=== PATIENT | male | born 1960 | race Caucasian/White ===

== ENCOUNTER 2024-08-11 04:34 | Observation (INO) | payer OTHER, SELFPAY ==
[2024-08-11] VITALS (11 sets, daily range): BP systolic 143–172; BP diastolic 58–85; PULSE 52–84; RESP 15–19; TEMP 35.5–37.1; O2SAT 95–100; BMI 34.4
--- NOTE | ~2024-08-11 | XR_ITS ---
Supine and upright views of the abdomen Clinical history: Foreign body Findings: Bowel gas pattern is nonspecific. No evidence for obstruction or free air. No abnormal mass lesion or calcification is seen. Osseous structures are intact. Impression: No significant abnormality is seen. No radiopaque foreign body seen. Reviewed, dictated and finalized at [facility]. Impression: No significant abnormality is seen. No radiopaque foreign body seen.
--- NOTE | ~2024-08-11 | CT_ITS ---
CT of the Abdomen and Pelvis: Indication: Necrotic bowel Technique: 2.5 mm axial scans were obtained through the abdomen and pelvis following intravenous adm inistration of 100 cc of Omnipaque 350. Dose reduction technique was used on this scan by utilizing a utomated exposure control and iterative reconstruction technique. The dose-length product (DLP) was 1 417.36 mGy-cm. Findings: Scans through the lung bases demonstrate calcified left upper lobe granuloma. The liver, spleen, pancreas, gallbladder, adrenals and kidneys are within normal limits. There are at herosclerotic calcifications of the aorta. No lymphadenopathy. There is probable circumferential wall thickening of the distal rectum with mild adjacent inflammator y change. No perforation evident. No obstruction evident. No abscess evident. Images through the pelvis were performed. Urinary bladder unremarkable. No pelvic mass seen. No ascit es. Bilateral L5 pars interarticularis defects are noted. Impression: Circumferential wall thickening of the distal rectum with mild adjacent inflammatory stranding. Findi ngs suggest infectious/inflammatory colitis. No evidence of perforation, abscess, or obstruction. Reviewed, dictated and finalized at [facility]. Impression: Circumferential wall thickening of the distal rectum with mild adjacent inflamm atory stranding. Findings suggest infectious/inflammatory colitis. No evidence of perforation, abscess, or obstruction.
--- NOTE | 2024-08-11 04:58 | ED_ITS ---
HPI - Skin/Abscess/Foreign Bdy General Chief complaint: Skin/Abscess/Foreign Body Stated complaint: I think I have blood coming out of my anus Time Seen by Provider: 08/11/24 04:46 History of Present Illness HPI narrative: Patient put a plastic water bottle of his bottom yesterday morning, has not been able to get it out. Has noticed some pinkish discharge and now there is blood so he finally came in. Review of Systems 2 Review of Systems: All systems reviewed & are unremarkable except as noted in HPI and below Exam 2 Narrative: EXAMINATION OF ORGAN SYSTEMS/BODY AREAS: Constitutional: Vital signs per nursing GENERAL:[No acute distress, non-toxic appearing.] HEAD: Normal with no signs of head trauma. EYES: EOMI, conjunctiva normal ENT: Hearing grossly intact LUNGS: Nonlabored breathing. HEART: [Regular rate and rhythm] ABD: [Soft], [nontender to palpation] RECTAL: Bloody mucus; I cannot palpate anything to extend of my finger EXT: Normal range of motion SKIN: [No rashes or lesions.] NEURO: [Alert and oriented x 3. No gross focal sensory or strength deficits.] PSYCH: Normal affect Course Vital Signs Vital signs: Vital Signs Temperature 98.5 F 08/11/24 05:56 Pulse Rate 53 L 08/11/24 05:56 Respiratory Rate 16 08/11/24 05:56 Blood Pressure 159/84 H 08/11/24 05:56 Pulse Oximetry 95 08/11/24 05:56 Temperature 98.5 F 08/11/24 05:56 Pulse Rate 53 L 08/11/24 05:56 Respiratory Rate 16 08/11/24 05:56 Blood Pressure 159/84 H 08/11/24 05:56 Pulse Oximetry 95 08/11/24 05:56 MDM - Skin/Abscess/Foreign Bdy MDM Narrative Medical decision making narrative: Patient presents with shampoo bottle of his rectum, he has not been able to retrieve it, he has use shampoo bottle in the past but has never had it get stuck before. Has been 24 hours and he is now having bloody stool in discharge. Severe pain with bearing down. Labs within acceptable limits, discussed with general surgeon will admit patient. Discussed with patient was agreeable to this plan. Lab Data 08/11/24 05:31 08/11/24 05:31 Labs: Lab Results 08/11/24 Range/Units 05:31 WBC 6.2 (4.5-10.0) K/mm3 RBC 4.76 (4.6-6.20) M/mm3 Hgb 14.6 (14.0-18.0) g/dL Hct 43.9 (42.0-52.0) % MCV 92.2 (80-100) fl MCH 30.7 (26-34) pg MCHC 33.3 (32-36) g/dl RDW 12.6 (11.5-14.5) % Plt Count 181 (150-375) k/mm3 MPV 9.9 (7.4-10.4) fl Immature Gran % (Auto) 0.2 (0-0.5) % Neut % (Auto) 66.8 (45.5-73.1) % Lymph % (Auto) 23.6 (18.3-44.2) % [place] % (Auto) 7.1 (2.6-8.5) % Eos % (Auto) 2.1 (0-4.4) % Baso % (Auto) 0.2 (0.2-1.2) % Lymph # (Auto) 1.46 (0.9-3.2) K/mm3 [place] # (Auto) 0.4 (0.1-0.6) K/mm3 Eos # (Auto) 0.1 (0-0.3) K/mm3 Baso # (Auto) 0.0 (0.0-0.1) K/mm3 Abs Immat Gran (auto) 0.01 (0.00-0.031) K/mm3 Absolute Neuts (auto) 4.1 (1.3-6.7) K/mm3 Absolute Nucleated RBC 0.000 (0.0-0.012) K/mm3 Nucleated RBC % 0.0 (0.0-0.2) % Sodium 141 (137-145) mmol/L Potassium 4.0 (3.4-5.0) mmol/L Chloride 108 H (98-107) mmol/L Carbon Dioxide 25 (22-30) mmol/L Anion Gap 8 (4-12) mmol/L BUN 21 H (9-20) mg/dL Creatinine 0.86 (0.7-1.3) mg/dL Estim Creat Clear Calc 95 ml/min Estimated GFR > 60 (59 - ) Glucose 105 (65-110) mg/dL Lactic Acid 0.9 (0.7-2.0) mmol/L Calcium 9.0 (8.4-10.2) mg/dL Total Bilirubin 0.8 (0.2-1.3) mg/dL AST 48 (17-59) U/L ALT 42 (6-50) U/L Alkaline Phosphatase 72 (38-126) U/L Total Protein 7.0 (6.3-8.2) g/dL Albumin 4.5 (3.5-5.1) g/dL Discharge Plan Discharge Clinical Impression: FB anus/rectum Patient Disposition: Still a Patient Condition: Serious Patient Language: Australian Follow-up/Referrals: PHYSICIAN,TRACK EQUIPMENT OPERATOR [Primary Care Provider] -
[2024-08-11 05:38] LABS: Basophils Percent Auto 0.2 % (0.2-1.2); Eosinophils Absolute Auto 0.1 K/mm3 (0-0.3); Eosinophils Percent Auto 2.1 % (0-4.4); Hematocrit 43.9 % (42.0-52.0); Hemoglobin 14.6 g/dL (14.0-18.0); Immature Granulocyte Absolute 0.01 K/mm3 (0.00-0.031); Immature Granulocyte Percent A 0.2 % (0-0.5); Lymphocytes Absolute Auto 1.46 K/mm3 (0.9-3.2); Lymphocytes Percent Auto 23.6 % (18.3-44.2); Mean Corpuscular HGB Conc 33.3 g/dl (32-36); Mean Corpuscular Hemoglobin 30.7 pg (26-34); Mean Corpuscular Volume 92.2 fl (80-100); Mean Platelet Volume 9.9 fl (7.4-10.4); Monocytes Absolute Auto 0.4 K/mm3 (0.1-0.6); Monocytes Percent Auto 7.1 % (2.6-8.5); Neutrophils Absolute Auto 4.1 K/mm3 (1.3-6.7); Neutrophils Percent Auto 66.8 % (45.5-73.1); Platelet Count Result 181 k/mm3 (150-375); Red Blood Count 4.76 M/mm3 (4.6-6.20); Red Cell Distribution Width 12.6 % (11.5-14.5); White Blood Count 6.2 K/mm3 (4.5-10.0)
[2024-08-11 05:48] LABS: Alanine Aminotransferase 42 U/L (6-50); Albumin Level 4.5 g/dL (3.5-5.1); Alkaline Phosphatase 72 U/L (38-126); Anion Gap 8 mmol/L (4-12); Aspartate Amino Transferase 48 U/L (17-59); Bilirubin,Total 0.8 mg/dL (0.2-1.3); Blood Urea Nitrogen 21 mg/dL (9-20); Carbon Dioxide 25 mmol/L (22-30); Chloride 108 mmol/L (98-107); Estimated CRCL calculation 95 ml/min; Estimated Glomerular Filt Rate > 60; Glucose 105 mg/dL (65-110); Lactic Acid Reflex 0.9 mmol/L (0.7-2.0); Sodium 141 mmol/L (137-145)
--- NOTE | 2024-08-11 08:56 | PM.IMHP ---
H&P: HPI History of Present Illness Date/Time: 08/11/24 08:56 Chief Complaint: Rectal foreign body Narrative: This is a 64-year-old male with history of KIKA compliant with CPAP, who presented to the ED early this morning for evaluation of rectal foreign body. He placed a plastic water bottle through his rectum yesterday morning and was not able to get it back out. He has been passing flatus and had some liquid stool since the object was inserted. He reports mild cramping abdominal pain when he feels like he needs to have a bowel movement, which is intermittent subsides. He noticed some rectal blood and decided come to the ED for evaluation. Labs were remarkable. CT scan of the abdomen and pelvis showed circumferential wall thickening of the distal rectum with mild adjacent inflammatory stranding, no perforation or signs of obstruction, and an air-filled foreign body in the distal sigmoid colon/rectum measuring 5.6 cm in length. The patient was for surgical evaluation and is now seen on medical floor. He denies any current abdominal pain. No nausea or vomiting. 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 Gender identity (if verbalized by the patient): Male Meds Vital Signs Vital Signs - 24 hr 08/11/24 05:56 08/11/24 06:50 08/11/24 07:25 Temperature 98.5 F Pulse Rate 53 L 53 L 52 L Respiratory Rate 16 17 15 Blood Pressure 159/84 H 149/67 H 143/70 H Pulse Oximetry 95 98 97 Exam Const: General: comfortable and no acute distress Nutritional Appearance: average body habitus Orientation/consciousness: patient oriented x3 HENMT: Head: normocephalic and atraumatic Ears: hearing grossly normal bilaterally Mouth: Yes moist mucous membranes Eyes: General: appearance normal, both eyes and all related structures Pupils: Equal, round and reactive pupils present Neck: Neck: normal visual inspection and full ROM Resp: Effort & Inspection: no respiratory distress Auscultation: clear to auscultation bilaterally Cardio: Rate: regular rate Rhythm: regular rhythm Peripheral pulses: Peripheral pulses 2+ throughout GI: Inspection: obesity and other (mildly distended) GI Palp: Yes Soft to palpation, Yes Tenderness to palpation present (GI) (mild lower abdominal tenderness) and Yes Other GI palpation findings present (Firmness in the mid lower abdomen, c/w foreign object seen on CT) Auscultation: Hypoactive bowel sounds present Rectal Exam: deferred Skin: General skin exam: normal color Neuro: General: moves all extremities and no focal motor deficits Speech: normal speech Motor exam (neuro): 5/5 motor strength present throughout Extrem: General: normal to inspection and no edema Psych: Mental Status: mental status grossly normal Attitude: cooperative Insight: Good insight present (Psych) Judgement: Good judgement present (Psych) H&P: Results Labs Labs: Short CBC 08/11/24 Range/Units 05:31 WBC 6.2 (4.5-10.0) K/mm3 Hgb 14.6 (14.0-18.0) g/dL Hct 43.9 (42.0-52.0) % Plt Count 181 (150-375) k/mm3 BMP 08/11/24 05:31 Sodium 141 Potassium 4.0 Chloride 108 H Carbon Dioxide 25 BUN 21 H Creatinine 0.86 Glucose 105 Calcium 9.0 Liver Function 08/11/24 Range/Units 05:31 Total Bilirubin 0.8 (0.2-1.3) mg/dL AST 48 (17-59) U/L ALT 42 (6-50) U/L Alkaline Phosphatase 72 (38-126) U/L Albumin 4.5 (3.5-5.1) g/dL Imaging CT scan - abdomen: Radiologist's impression: ITS Impressions Abdomen X-Ray 08/11/24 05:48 Impression: No significant abnormality is seen. No radiopaque foreign body seen. Abdomen/Pelvis CT 08/11/24 06:31 Impression: Circumferential wall thickening of the distal rectum with mild adjacent inflammatory stranding. Findings suggest infectious/inflammatory colitis. No evidence of perforation, abscess, or obstruction. ADDENDUM: 08/11/24 0655 Additional review of images demonstrates that there is in fact an air-filled foreign body in the rectum/distal sigmoid colon, measuring 15.6 cm in length, best seen on sagittal images (sagittal image 88). This is compatible with provided history of bottle in the rectum. Assessment and Plan Assessment and plan (1) FB anus/rectum: Code(s): T18.5XXA - Foreign body in anus and rectum, initial encounter Status: Acute Assessment and Plan: CT scan showed findings of rectal foreign body consistent with the history provided of a plastic bottle placed per rectum yesterday morning. There is some rectal wall thickening with mild inflammatory stranding, but no evidence of perforation or proximal dilated bowel suggesting an obstruction on CT. We would recommend proceeding with rectal exam under anesthesia, removal of rectal foreign body, by Dr. Mayberry. We discussed the possibility of having to proceed with an exploratory laparotomy if the foreign body cannot be retrieved through the rectum, as well as possibly requiring an ostomy. Description of the procedure, risks, benefits, alternatives, and expected recovery were discussed with the patient in detail. He agrees to proceed and has been added to the surgery schedule for later today. (2) KIKA (obstructive sleep apnea): Code(s): G47.33 - Obstructive sleep apnea (adult) (pediatric) Status: Acute Plan I have discussed the patient's case and plan of care with Dr. Mayberry.
[2024-08-11] MEDS: LACTATED RINGERS 1,000 ML 125 ML IV CONT (10:35)
[2024-08-11] MEDS: LACTATED RINGERS 1,000 ML 30 ML IV CONT (13:25)
--- NOTE | 2024-08-11 15:17 | WPDHPUPDATE1 ---
History and Physical Update Update Date/Time: 08/11/24 15:17 History and Physical has been reviewed, including an updated exam of the patient. There are NO changes in the patient's condition. Risks, benefits, and alternatives have been discussed and questions answered. Patient agrees to proceed with procedure.
--- NOTE | 2024-08-11 15:21 | WPDANESEPPF ---
Anes - Initial Pre Proc Eval Procedure: Operation Date: 08/11/24 15:00 Proposed Procedures p Rectal Exam Under Anesthesia, Removal of Rectal Foreign Body, - Washington Mayberry DO s Possible Exploratory Laparotomy, Possible Ostomy - Washington Mayberry DO Date/Time: 08/11/24 15:21 Surgeon: Washington Mayberry DO Pre Op Diagnosis: rectal shampoo bottle Patient Data Age: 64 Gender: M Height: 1.78 m Weight: 109 kg Last Vital Signs Temp 37.1 C 08/11/24 13:25 Pulse 61 08/11/24 13:25 Resp 16 08/11/24 13:25 BP 172/78 H 08/11/24 13:25 Pulse Ox 97 08/11/24 13:25 O2 Del Method Room Air 08/11/24 13:25 Allergies Allergy/AdvReac Type Severity Reaction Status Date / Time No Known Allergies Allergy Verified 08/11/24 10:30 Home Medications ?Medication ?Instructions ?Recorded ?Confirmed ?Type acetaminophen 325 mg capsule 325 mg PO TID PRN pain 08/11/24 08/11/24 History aspirin 81 mg capsule 81 mg PO QPM 08/11/24 08/11/24 History atorvastatin 80 mg tablet 80 mg PO QPM 08/11/24 08/11/24 History cholecalciferol (vitamin D3) 125 125 mcg PO QPM 08/11/24 08/11/24 History mcg (5,000 unit) capsule pramipexole 0.5 mg tablet 0.5 mg PO .TID 08/11/24 08/11/24 History vitamin B complex 1 cap PO QPM 08/11/24 08/11/24 History Laboratory Tests 08/11/24 05:31 WBC 6.2 K/mm3 (4.5-10.0) RBC 4.76 M/mm3 (4.6-6.20) Hgb 14.6 g/dL (14.0-18.0) Hct 43.9 % (42.0-52.0) MCV 92.2 fl (80-100) MCH 30.7 pg (26-34) MCHC 33.3 g/dl (32-36) RDW 12.6 % (11.5-14.5) Plt Count 181 k/mm3 (150-375) MPV 9.9 fl (7.4-10.4) Immature Gran % (Auto) 0.2 % (0-0.5) Neut % (Auto) 66.8 % (45.5-73.1) Lymph % (Auto) 23.6 % (18.3-44.2) [place] % (Auto) 7.1 % (2.6-8.5) Eos % (Auto) 2.1 % (0-4.4) Baso % (Auto) 0.2 % (0.2-1.2) Lymph # (Auto) 1.46 K/mm3 (0.9-3.2) [place] # (Auto) 0.4 K/mm3 (0.1-0.6) Eos # (Auto) 0.1 K/mm3 (0-0.3) Baso # (Auto) 0.0 K/mm3 (0.0-0.1) Abs Immat Gran (auto) 0.01 K/mm3 (0.00-0.031) Absolute Neuts (auto) 4.1 K/mm3 (1.3-6.7) Absolute Nucleated RBC 0.000 K/mm3 (0.0-0.012) Nucleated RBC % 0.0 % (0.0-0.2) Sodium 141 mmol/L (137-145) Potassium 4.0 mmol/L (3.4-5.0) Chloride 108 H mmol/L (98-107) Carbon Dioxide 25 mmol/L (22-30) Anion Gap 8 mmol/L (4-12) BUN 21 H mg/dL (9-20) Creatinine 0.86 mg/dL (0.7-1.3) Estim Creat Clear Calc 95 ml/min Estimated GFR > 60 (59 - ) Glucose 105 mg/dL (65-110) Lactic Acid 0.9 mmol/L (0.7-2.0) Calcium 9.0 mg/dL (8.4-10.2) Total Bilirubin 0.8 mg/dL (0.2-1.3) AST 48 U/L (17-59) ALT 42 U/L (6-50) Alkaline Phosphatase 72 U/L (38-126) Total Protein 7.0 g/dL (6.3-8.2) Albumin 4.5 g/dL (3.5-5.1) Patient hx anesthesia problems: none Family hx anesthesia problems: none Results Review: All pre-operative results and documents have been reviewed as part of the pre-operative evaluation. FORMERLY [facility], [facility] Past Medical History Medical History KIKA (obstructive sleep apnea) Obesity Surgical History Surgical History History of appendectomy Social History Social History Smoking packs per day: 1 Smoking cigarettes per day: 20.0 Years smoked: 30 Smoking pack-years: 30.00 Smoking status: Former smoker Tobacco type: cigarettes Alcohol intake: never Substance use: never Do You Feel Safe in your Home?: Yes Lack of Transportation: No Lack of Food: Never True Current Housing: I Have Housing Concerned About Future Housing: No Difficulty Paying Gas/Electric Bills: No Difficulty Paying for Meds: No Currently Unemployed: No Education: Bachelor's Degree Difficulty w/ Childcare or Family Care: No Living arrangements: with family Additional living arrangements comments: with 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/Education: occupation 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 Informed Consent: The patient's anesthetic plan and its attendant risks and benefits were discussed with the patient/family/POA. Questions were solicited and answers provided to the satisfaction of the patient/family/POA.
--- NOTE | 2024-08-11 16:37 | W.PM.PROC2 ---
Procedure Note - Detailed Date of Procedure 08/11/24 Pre-op Diagnosis Rectal foreign body Post-op Diagnosis Same (Shampoo bottle rectal foreign body) Procedure Performed 1. Rectal exam under anesthesia with removal of rectal foreign body 2. Rigid proctosigmoidoscopy Surgeon Washington Mayberry, DO Anesthesia General Indications This is a 64-year-old man who presented to the emergency department with complaints of a rectal foreign body. He inserted a shampoo bottle yesterday and this became lodged higher up into the rectum and he was unable to retrieve it. X-ray and CT were performed in the emergency department which confirmed a rectal foreign body. Discussions were made with the patient about treatment options and decision was made to proceed with rectal exam under anesthesia with removal of foreign body, possible exploratory laparotomy, possible ostomy. Findings The rectal foreign body was identified high up into the rectal vault and sigmoid colon. While applying manual pressure on the abdomen was able to just barely feel the tip of the foreign body. This was likely about 10-12 cm from the anal verge. The foreign body was unable to be visualized using a Fansler anoscope. I then also attempted using a rigid proctoscope but was barely able to identify the tip of the foreign body. Eventually with external manipulation and gentle dilation, I was able to get 2 fingertips around the end of the foreign body. This still took some effort and manipulation but eventually I was able to get a hold of the foreign body and deliver it through the rectum and anus. Foreign body was completely removed and appeared to be intact. This appeared to be a shampoo bottle. No other significant abnormalities were noted anorectal exam other than internal and external hemorrhoids. Description of Procedure Procedure as well as risks, benefits, and alternatives were discussed with the patient. Written consent was obtained and placed in chart prior to procedure. Patient was brought back to surgical suite. He was placed supine on operating table. Time-out was done to confirm patient and procedure. He was then intubated by the anesthesia department. He was then repositioned into dorsal lithotomy position. His rectal area was prepped and draped in sterile fashion using Betadine prep. Digital rectal exam was initially performed. I then inserted a Fansler anoscope and was unable to identify the foreign object. I then applied manual pressure on the mid abdomen and was able to barely feel the tip of the object high up in the rectal vault. I gently dilated the rectum with 3 fingers and continued to try to manipulate the object distally. I also attempted to advance a Jackson catheter up the side of the object and inflate the balloon and carefully retract. This was unsuccessful delivering the object. I then also inserted a rigid proctosigmoidoscope and advanced this up to the level of the foreign object. I could just barely see the tip of the foreign object but was not able to adequately visualize it to get a clamp or other grasper around it. I then removed the proctosigmoidoscope and tried inserting the Fansler anoscope again. I was still unable to adequately visualize the object or get a clamp around this. With further external pressure on the mid abdomen I was able to manipulate the object a little further distally and was eventually able to get 3 fingers around the tip of the object. With careful pressure and continued traction was able to eventually deliver the object out of the rectum. The object appeared to be a shampoo bottle and appeared completely intact. Careful inspection was made around the remainder of the anus and rectum and no other significant abnormalities were noted other than internal and external hemorrhoids. The patient was then awakened from anesthesia, extubated, and transferred to recovery. Estimated Blood Loss 5 Pathology None sent Complications No immediate complications Condition Stable Disposition Floor [facility] Billing Surgery - Charge Forward: Surgery Billing
--- NOTE | 2024-08-11 16:48 | P.DS_ITS ---
DS: Admitting Diagnosis Discharge Date 08/11/2024 Admitting Diagnosis Rectal foreign body DS: Discharge Diagnosis Discharge Diagnosis (1) FB anus/rectum: Qualifiers: Encounter type: initial encounter Qualified Code(s): T18.5XXA - Foreign body in anus and rectum, initial encounter Code(s): T18.5XXA - Foreign body in anus and rectum, initial encounter Status: Acute (2) KIKA (obstructive sleep apnea): Code(s): G47.33 - Obstructive sleep apnea (adult) (pediatric) Status: Acute DS: Summary Hospital Course Reason for hospitalization: Rectal foreign body Hospital Course: This is a 64-year-old man who presented to the emergency department after inserting an object up his rectum and was unable to retrieve it. The object had been up in the rectum for about 24 hours. X-ray and CT was performed in the emergency department which confirmed a rectal foreign body. He was placed in observation and then underwent rectal exam under anesthesia with removal of rectal foreign body on 08/11/2024. He was then returned to the surgical floor postoperatively. His diet and activity were advanced as tolerated. He was then discharged home once pain was controlled, vitals remained stable, he was tolerating his diet, and ambulating in the halls. Status at Discharge Functional status at discharge: independent ambulation Overall status at discharge: patient is progressing back to baseline Time Spent with Patient Time attestation: Total time spent providing and/or coordinating discharge services: Time spent: Less than 30 minutes Exam Const: General: comfortable and no acute distress Resp: Effort & Inspection: normal respiratory effort Cardio: Rate: regular rate Rhythm: regular rhythm GI: Inspection: non-distended GI Palp: Yes Soft to palpation, No Tenderness to palpation present (GI) and No Guarding due to palpation present (GI) DS: Data Data Completed and Pending Labs on day of discharge: Labs from last 24 hours 08/11/24 05:31 WBC 6.2 RBC 4.76 Hgb 14.6 Hct 43.9 MCV 92.2 MCH 30.7 MCHC 33.3 RDW 12.6 Plt Count 181 MPV 9.9 Immature Gran % (Auto) 0.2 Neut % (Auto) 66.8 Lymph % (Auto) 23.6 Band[place] % (Auto) 7.1 Eos % (Auto) 2.1 Baso % (Auto) 0.2 Lymph # (Auto) 1.46 Band[place] # (Auto) 0.4 Eos # (Auto) 0.1 Baso # (Auto) 0.0 Abs Immat Gran (auto) 0.01 Absolute Neuts (auto) 4.1 Absolute Nucleated RBC 0.000 Nucleated RBC % 0.0 Sodium 141 Potassium 4.0 Chloride 108 H Carbon Dioxide 25 Anion Gap 8 BUN 21 H Creatinine 0.86 Estim Creat Clear Calc 95 Estimated GFR > 60 Glucose 105 Lactic Acid 0.9 Calcium 9.0 Total Bilirubin 0.8 AST 48 ALT 42 Alkaline Phosphatase 72 Total Protein 7.0 Albumin 4.5 Imaging Radiologist's impression: ITS Impressions Abdomen X-Ray 08/11/24 05:48 Impression: No significant abnormality is seen. No radiopaque foreign body seen. Abdomen/Pelvis CT 08/11/24 06:31 Impression: Circumferential wall thickening of the distal rectum with mild adjacent inflammatory stranding. Findings suggest infectious/inflammatory colitis. No evidence of perforation, abscess, or obstruction. ADDENDUM: 08/11/24 0655 Additional review of images demonstrates that there is in fact an air-filled foreign body in the rectum/distal sigmoid colon, measuring 15.6 cm in length, best seen on sagittal images (sagittal image 88). This is compatible with provided history of bottle in the rectum. Discharge Plan Discharge Attending physician on discharge: Washington Mayberry Consulting providers: So Wilson; Christohper Eldridge; Devin Paz Discharging Clinician: Washington Mayberry Anticipated Discharge Date/Time: 08/11/24 19:00 Patient Disposition: Home Activity: other - see discharge instructions Diet: other - see discharge instructions Wound Care Instructions: other - see discharge instructions Discharge Instructions: Discharge Instructions for Anorectal Surgery Dr. Mayberry 1. May discharge from Outpatient Surgery area when stable per protocol. 2. Activity: start Sitz baths in a.m. Following surgery once at home, all patients should take 10-20 minute Sitz baths at least twice a day and as needed after each bowel movement. Rest around the house for the next 1-2 days, taking frequent walks. No driving for 24 hours. 3. Diet: Regular diet with 6-8 glasses of water per day. Eat plenty of fruits and vegetables. 4. Medications: * Resume all home medications * Metamucil 1 tablespoon PO twice a day * Milk of Magnesia 1 oz (30cc) PO daily or Miralax 1 capful PO daily * Tucks cream pads to perianal skin after each Sitz bath 5. Call office if: * Sudden increase in pain, swelling or incisional drainage or bleeding occurs * Fever > 101 degrees F * Nausea and vomiting occur * Inability to urinate 7. Other orders: Formulated October 2012 Rev. October 2013 Patient Instructions: Antibiotic Form Patient Language: Welsh Stand Alone Forms: General Discharge Information Follow-up/Referrals: Marcus uF MD [Primary Care Provider] - Follow Up with Primary Dr Discharge Medications: Continued pramipexole 0.5 mg tablet 0.5 mg PO .TID atorvastatin 80 mg tablet 80 mg PO QPM aspirin 81 mg capsule 81 mg PO QPM cholecalciferol (vitamin D3) 125 mcg (5,000 unit) capsule 125 mcg PO QPM acetaminophen 325 mg capsule 325 mg PO TID PRN (Reason: pain) vitamin B complex Capsule 1 cap PO QPM No Action meloxicam 15 mg tablet See Rx Instructions .ROUTE .COMPLEX Qty: 30 1RF Dose Instruction: TAKE 1 TABLET BY MOUTH EVERY DAY Rx Instructions: TAKE 1 TABLET BY MOUTH EVERY DAY azithromycin [Zithromax] 250 mg tablet See Rx Instructions PO .COMPLEX Qty: 6 0RF Rx Instructions: For 250 mg dose pack: take 500 mg today (day 1), then 250 mg for 4 days (days 2-5) PO pramipexole 0.5 mg tablet 0.5 mg PO QID Qty: 360 1RF benzonatate 100 mg capsule 100 mg PO TID PRN (Reason: cough) Qty: 30 0RF Adult Aspirin 81 mg Tablet 81 mg PO DAILY atorvastatin 80 mg tablet See Rx Instructions .ROUTE .COMPLEX Qty: 90 3RF Dose Instruction: TAKE 1 TABLET DAILY Rx Instructions: TAKE 1 TABLET DAILY Date of admission: 08/11/24 05:54 Primary Care Provider: Marcus Fu Admitting Provider: Washington Mayberry Attending physician on admission: Washington Mayberry Condition: Improved
[2024-08-11] MEDS: LACTATED RINGERS 1,000 ML 100 ML IV CONT (17:42)
== END 2024-08-11 19:06 | disposition home or self-care (01) ==
LOC: ANHED 06:21 → ANH3MEDSUR 06:43
PROVIDERS: Admitting Provider Surgery; Emergency Provider Emergency Medicine; PCP Family Medicine; Visit Provider Surgery
PROC: (CPT 45915; principal; 2024-08-11 15:00)
DX: T18.5XXA Foreign body in anus and rectum, initial encounter (principal); W44.8XXA Other foreign body entering into or through a natural orifice, initial encounter; G47.33 Obstructive sleep apnea (adult) (pediatric); E66.9 Obesity, unspecified; Z68.34 Body mass index [BMI] 34.0-34.9, adult; Z87.891 Personal history of nicotine dependence; Z99.89 Dependence on other enabling machines and devices; Z79.82 Long term (current) use of aspirin; Z79.899 Other long term (current) drug therapy
CPT/HCPCS: 45915; 36415; 74018; 74177; 80053; 83605; 85025; 96361; 96374; 96375; 96376; 99285; A9270; G0378; J1100; J2250; J2405; J2704; J3010; J7120; Q9967